=== PATIENT | male | born 1940 | race Caucasian/White ===

== ENCOUNTER 2019-02-23 13:12 | Emergency (ER) | payer MEDICARE, MEDICAID ==
[~2019-02-23] VITALS: Ht 165.1 cm; Wt 81.8 kg
[~2019-02-23 13:12] MED LIST: ANTI-DIARRHEAL2 MG PO; CEROVITE SENIOR1 TA1 PO; CIPRO 500MG TA500 MG PO; CIPRO750 MG PO; CLEOCIN HC150 MG/CAP PO; CLEOCIN HCL300 MG PO; COMBIRESP IH; COMBIVENT INH14.7 GM IH; DULCOLAX STOOL100 MG PO; DULCOLAX TAB5 MG PO; FLOMAX 0.40.4 MG/CAP PO; INCRUSE EL62.5 MCG/A IH; K-DUR20 MEQ PO; LAMISIL AT1% TP; LASIX 20MG TABL20 MG PO; LEVAQUIN 5500 MG/TA1 PO; LEVAQUIN 750MG750 M1 PO; LYRICA 75MG CAP75 MG PO; MIRALAX 255 GM255 GM PO; MOTRIN 200200 MG/TAB PO; NEURONTIN600 MG/TAB PO; NITROSTAT0.4 MG/TAB SL; NORCO 325 MG-51 TAB PO; PLAVIX 75MG TAB75 MG PO; PREDNISONE20 MG PO; RT ADVAIR HFA 1112 G IH; SANTYL30 TP; SENOKOT8.6 MG PO; SMZ/TMPDS PO; TENORMIN 2525 MG/TAB PO; TRIAMCINOLONE0.1% TOP; TYLENOL 500MG500 MG PO; ZOHYDRO ER10 MG PO; ZOVIRAX 200MG200 MG PO; ZYLOPRIM 100MG100 MG PO
--- NOTE | 2019-02-23 15:44 | NUR ---
dynamic balancer set up worker assisted with a taxi voucher home, from the ED. Worker arranged for EMS to provide assistance with meeting patient at his home and helping in into his apartment.
[2019-02-23] MEDS ORDERED: NYSTATIN OR100 MU/ML PO (17:22)
== END 2019-02-23 18:24 | disposition home or self-care (01) ==
LOC: COL.ER 13:12
DX: R09.89 Other specified symptoms and signs involving the circulatory and respiratory systems (principal); B37.9 Candidiasis, unspecified; J44.9 Chronic obstructive pulmonary disease, unspecified; Z87.891 Personal history of nicotine dependence

== ENCOUNTER 2019-03-15 07:07 | Outpatient (CLI) | payer MEDICARE, MEDICAID ==
--- NOTE | 2019-03-13 11:41 | NUR ---
PT STATED TO ASK HIS TRANSPORTATION IF THEY WOULD LIKE TO BE HIS EMERGENCY CONTACT. HER NAME IS BLAKE CISSE. PT LIVES ALONE.
[~2019-03-15] VITALS: Ht 165.1 cm; Wt 79.5 kg
[2019-03-15] VITALS (7 sets, daily range): BP systolic 95–104; BP diastolic 53–80; PULSE 80–90; TEMP 98.2–98.4
[~2019-03-15 07:07] MED LIST changes: +NYSTATIN OR100 MU/ML PO; -ZOVIRAX 200MG200 MG PO; +ZOVIRAX400 MG PO
[2019-03-15] MEDS ORDERED: COLACE 100100 MG/CAP PO (07:50)
[2019-03-15] MEDS ORDERED: FLOMAX 0.40.4 MG/CAP PO (07:50)
[2019-03-15] MEDS ORDERED: PLAVIX 75MG TAB75 MG PO (07:51)
[2019-03-15] MEDS ORDERED: ADVIL200 MG PO (07:51)
[2019-03-15] MEDS ORDERED: COMPAZINE 110 MG/TAB PO (07:52)
[2019-03-15] MEDS ORDERED: SENOKOT8.6 MG PO (07:52)
[2019-03-15] MEDS ORDERED: TYLENOL 500MG500 MG PO (07:53)
--- NOTE | 2019-03-15 09:55 | NUR ---
Pt is back from procedure, report received from Hermelinda WELCH, pt is awake and alert, pwd. Puncture site to rt iliac crest covered with dry bandaid. Pt has been on back for more than the required 10 minutes.
[2019-03-15 11:06] LABS: MEAN CELL VOLUME 89 fl (80.0-100.0); MEAN CORPUSCULAR HGB CONC 30 g/dl (33.0-37.0); PLATELET COUNT 121 K/mm3 (130-400); RED BLOOD COUNT 3.22 M/mm3 (4.20-5.60)
[2019-03-15 11:13] LABS: HEMATOCRIT 28.7 % (42.0-52.0); HEMOGLOBIN 8.6 g/dl (13.5-18.0); MEAN CORPUSCULAR HEMOGLOBIN 27 pg (27.0-31.0)
--- NOTE | 2019-03-15 11:28 | NUR ---
Discharge instructions given to pt.PT verbalizes understanding.INT removed,catheter tip intact.Pt escorted out via wheelchair by this nurse with home portable oxygen in place.
[2019-03-15 11:34] LABS: BASOPHIL 1 % (0-2); EOSINOPHIL 1 % (0-4); LYMPHOCYTE 4 % (20.0-51.0); METAMYELOCYTE 6 % (0-0); PLATELET ESTIMATE DECREASED (NORMAL); SCHISTOCYTES 1+
[2019-03-15 11:35] LABS: BAND 30 % (0-10); MYELOCYTE 9 % (0-0); NEUTROPHILS 34 % (42.0-75.2)
== END 2019-03-15 12:01 | disposition home or self-care (01) ==
LOC: SDCO 07:07
PROVIDERS: Pathology Anatomic Pathology & Clinical Pathology
DX: C95.90 Leukemia, unspecified not having achieved remission (principal); C82.80 Other types of follicular lymphoma, unspecified site; D50.9 Iron deficiency anemia, unspecified; I25.10 Atherosclerotic heart disease of native coronary artery without angina pectoris; I10 Essential (primary) hypertension; M19.90 Unspecified osteoarthritis, unspecified site; J44.9 Chronic obstructive pulmonary disease, unspecified; F43.10 Post-traumatic stress disorder, unspecified; Z87.891 Personal history of nicotine dependence; Z79.899 Other long term (current) drug therapy; Z88.0 Allergy status to penicillin; Z88.6 Allergy status to analgesic agent; Z88.8 Allergy status to other drugs, medicaments and biological substances; Z91.018 Allergy to other foods; Z80.9 Family history of malignant neoplasm, unspecified
CPT/HCPCS: J2704; J3010; J7030

== ENCOUNTER → 2019-06-14 | Outpatient (CLI) | payer MEDICARE, MEDICAID ==
[~2019-06-14] MED LIST changes: +ADVIL200 MG PO; +COLACE 100100 MG/CAP PO; +COMPAZINE 110 MG/TAB PO
[2019-06-14 18:57] LABS: MEAN CELL VOLUME 105 fl (80.0-100.0); MEAN CORPUSCULAR HGB CONC 30 g/dl (33.0-37.0); MEAN PLATELET VOLUME 9.8 fl (7.4-10.4); PLATELET COUNT 63 K/mm3 (130-400); RED BLOOD COUNT 2.78 M/mm3 (4.20-5.60); REDCELL DISTRIBUTION WIDTH-CV 21.2 % (11.5-14.5)
[2019-06-14 19:19] LABS: HEMATOCRIT 29.1 % (42.0-52.0); HEMOGLOBIN 8.7 g/dl (13.5-18.0); MEAN CORPUSCULAR HEMOGLOBIN 31 pg (27.0-31.0)
[2019-06-14 19:33] LABS: ANISOCYTOSIS 3+; BAND 9 % (0-10); EOSINOPHIL 2 % (0-4); HYPOCHROMIA 3+; LYMPHOCYTE 3 % (20.0-51.0); METAMYELOCYTE 6 % (0-0); MYELOCYTE 18 % (0-0); NEUTROPHILS 44 % (42.0-75.2); PLATELET ESTIMATE DECREASED (NORMAL); STOMATOCYTE 2+
== END ==
LOC: ZCOL.LAB 18:24
PROVIDERS: Internal Medicine
DX: C82.11 Follicular lymphoma grade II, lymph nodes of head, face, and neck (principal); C79.51 Secondary malignant neoplasm of bone

== ENCOUNTER → 2019-06-23 | Outpatient (CLI) | payer MEDICARE, MEDICAID ==
[2019-06-23 16:10] LABS: ALBUMIN 4.1 gm/dL (3.5-5.0); BILIRUBIN,TOTAL 0.2 mg/dL (0.0-1.0); CALCIUM 8.9 mg/dL (8.4-10.2); CREATININE, serum 0.86 (0.66-1.25); POTASSIUM 4.1 mmol/L (3.4-5.0); TOTAL PROTEIN 6.5 gm/dL (6.4-8.2)
[2019-06-23 16:14] LABS: HEMATOCRIT 31.2 % (42.0-52.0); HEMOGLOBIN 9.5 g/dl (13.5-18.0); MEAN CELL VOLUME 104 fl (80.0-100.0); MEAN CORPUSCULAR HEMOGLOBIN 32 pg (27.0-31.0); MEAN CORPUSCULAR HGB CONC 30 g/dl (33.0-37.0); MEAN PLATELET VOLUME 9.7 fl (7.4-10.4); PLATELET COUNT 155 K/mm3 (130-400); RED BLOOD COUNT 2.99 M/mm3 (4.20-5.60); REDCELL DISTRIBUTION WIDTH-CV 19.3 % (11.5-14.5)
[2019-06-23 16:29] LABS: ANISOCYTOSIS 3+; BAND 12 % (0-10); EOSINOPHIL 1 % (0-4); LYMPHOCYTE 4 % (20.0-51.0); METAMYELOCYTE 3 % (0-0); MYELOCYTE 23 % (0-0); NEUTROPHILS 38 % (42.0-75.2); PLATELET ESTIMATE NORMAL (NORMAL); POIKILOCYTOSIS 2+
[2019-06-23 16:30] LABS: OVALOCYTES 1+; STOMATOCYTE 1+
== END ==
LOC: ZCOL.LAB 15:52
PROVIDERS: Internal Medicine
DX: C82.11 Follicular lymphoma grade II, lymph nodes of head, face, and neck (principal)

== ENCOUNTER → 2019-06-30 | Outpatient (CLI) | payer MEDICARE, MEDICAID ==
[2019-06-30 16:35] LABS: MEAN CELL VOLUME 103 fl (80.0-100.0); MEAN CORPUSCULAR HGB CONC 30 g/dl (33.0-37.0); MEAN PLATELET VOLUME 9.3 fl (7.4-10.4); PLATELET COUNT 118 K/mm3 (130-400); RED BLOOD COUNT 3.21 M/mm3 (4.20-5.60); REDCELL DISTRIBUTION WIDTH-CV 18.3 % (11.5-14.5)
[2019-06-30 16:38] LABS: HEMATOCRIT 33.2 % (42.0-52.0); HEMOGLOBIN 9.9 g/dl (13.5-18.0); MEAN CORPUSCULAR HEMOGLOBIN 31 pg (27.0-31.0)
== END ==
LOC: ZCOL.LAB 16:00
PROVIDERS: Internal Medicine
DX: C82.11 Follicular lymphoma grade II, lymph nodes of head, face, and neck (principal)

== ENCOUNTER → 2019-07-07 | Outpatient (CLI) | payer MEDICARE, MEDICAID ==
[2019-07-07 16:33] LABS: MEAN CELL VOLUME 99 fl (80.0-100.0); MEAN CORPUSCULAR HGB CONC 32 g/dl (33.0-37.0); MEAN PLATELET VOLUME 11.7 fl (7.4-10.4); PLATELET COUNT 62 K/mm3 (130-400); RED BLOOD COUNT 3.15 M/mm3 (4.20-5.60); REDCELL DISTRIBUTION WIDTH-CV 18.1 % (11.5-14.5)
[2019-07-07 16:36] LABS: ALBUMIN 4.3 gm/dL (3.5-5.0); BILIRUBIN,TOTAL 0.6 mg/dL (0.0-1.0); CALCIUM 9.1 mg/dL (8.4-10.2); CREATININE, serum 0.95 (0.66-1.25); POTASSIUM 3.4 mmol/L (3.4-5.0); TOTAL PROTEIN 6.8 gm/dL (6.4-8.2)
[2019-07-07 18:18] LABS: HEMATOCRIT 31.1 % (42.0-52.0); HEMOGLOBIN 9.9 g/dl (13.5-18.0); MEAN CORPUSCULAR HEMOGLOBIN 31 pg (27.0-31.0)
[2019-07-07 18:26] LABS: ANISOCYTOSIS 2+; BAND 21 % (0-10); METAMYELOCYTE 16 % (0-0); MYELOCYTE 28 % (0-0); NEUTROPHILS 33 % (42.0-75.2); PLATELET ESTIMATE DECREASED (NORMAL)
== END ==
LOC: ZCOL.LAB 15:57
PROVIDERS: Internal Medicine
DX: C82.11 Follicular lymphoma grade II, lymph nodes of head, face, and neck (principal)

== ENCOUNTER → 2019-07-12 | Outpatient (CLI) | payer MEDICARE, MEDICAID ==
[2019-07-12 18:58] LABS: MEAN CELL VOLUME 101 fl (80.0-100.0); MEAN CORPUSCULAR HGB CONC 30 g/dl (33.0-37.0); MEAN PLATELET VOLUME 12.4 fl (7.4-10.4); RED BLOOD COUNT 3.18 M/mm3 (4.20-5.60); REDCELL DISTRIBUTION WIDTH-CV 18.6 % (11.5-14.5)
[2019-07-12 19:03] LABS: ALBUMIN 4.5 gm/dL (3.5-5.0); BILIRUBIN,TOTAL 0.4 mg/dL (0.0-1.0); CALCIUM 9.2 mg/dL (8.4-10.2); CREATININE, serum 0.81 (0.66-1.25); POTASSIUM 3.5 mmol/L (3.4-5.0); TOTAL PROTEIN 7.1 gm/dL (6.4-8.2)
[2019-07-12 19:34] LABS: HEMATOCRIT 32.2 % (42.0-52.0); HEMOGLOBIN 9.8 g/dl (13.5-18.0); MEAN CORPUSCULAR HEMOGLOBIN 31 pg (27.0-31.0); PLATELET COUNT 47 K/mm3 (130-400)
[2019-07-12 20:03] LABS: BAND 11 % (0-10); EOSINOPHIL 1 % (0-4); LYMPHOCYTE 1 % (20.0-51.0); METAMYELOCYTE 4 % (0-0); MYELOCYTE 32 % (0-0); NEUTROPHILS 46 % (42.0-75.2); PLATELET ESTIMATE DECREASED (NORMAL)
[2019-07-12 20:04] LABS: HYPOCHROMIA 3+
[2019-07-12 20:05] LABS: ANISOCYTOSIS 2+
[2019-07-13 09:00] LABS: PATHOLOGY DIFF REVIEW OK +
== END ==
LOC: ZCOL.LAB 18:00
PROVIDERS: Internal Medicine
DX: Z01.89 Encounter for other specified special examinations (principal)